=== PATIENT | male | born 2000 | race African-American/Black ===

== ENCOUNTER → 2021-10-07 | Outpatient (REF) | payer OTHER ==
[2021-10-08 00:45] LABS: GC DNA AMPLIFICATION NEGATIVE (NEGATIVE)
== END ==
LOC: M LAB REF 22:45
PROVIDERS: ATTEND Physician Assistant
DX: Z11.3 Encounter for screening for infections with a predominantly sexual mode of transmission (principal)

== ENCOUNTER → 2021-11-04 | Outpatient (REF) | payer OTHER, BC ==
[2021-11-05 12:28] LABS: GC DNA AMPLIFICATION NEGATIVE (NEGATIVE)
== END ==
LOC: M LAB REF 08:35
PROVIDERS: ATTEND Physician Assistant
DX: R30.0 Dysuria (principal)

== ENCOUNTER → 2022-07-15 | Outpatient (REF) | payer OTHER, BC ==
[2022-07-15 17:19] LABS: HEMATOCRIT 44.3 % (42.0-52.0); HEMOGLOBIN 14.9 g/dl (13.5-17.5); MEAN CORPUSCULAR HEMOGLOBIN 29.4 pg (27.0-33.0); MEAN CORPUSCULAR HGB CONC 33.6 g/dl (32.0-36.5); MEAN CORPUSCULAR VOLUME 87.5 fl (80.0-96.0); PLATELET COUNT, AUTOMATED 284 10^3/uL (150-450); RED BLOOD COUNT 5.06 10^6/uL (4.30-6.10); WHITE BLOOD COUNT 4.3 10^3/uL (4.0-10.0)
[2022-07-15 17:41] LABS: PERCENT SATURATION 43.3 % (19.7-50.0)
[2022-07-15 18:25] LABS: ALBUMIN 4.5 G/DL (3.2-5.2); BILIRUBIN,DIRECT 0.3 MG/DL (<0.4); FERRITIN 72.9 NG/ML (10.5-307.3); TOTAL PROTEIN 7.3 G/DL (5.7-8.2)
== END ==
LOC: M LAB REF 16:25
PROVIDERS: ATTEND Physician Assistant
DX: R94.5 Abnormal results of liver function studies (principal)

== ENCOUNTER → 2024-04-05 | Outpatient (CLI) | payer OTHER, BC | LOC: M WUC 14:22 | PROVIDERS: ATTEND Physician Assistant | DX: Z76.89 Persons encountering health services in other specified circumstances (principal) ==

== ENCOUNTER 2024-05-17 05:00 | Emergency (ER) | payer BC, OTHER ==
[~2024-05-17] VITALS: Ht 170.2 cm; Wt 62.8 kg
[2024-05-17] MEDS ORDERED: AMOX400S2 PO (06:36)
[2024-05-17 07:06] VITALS: BP 167/85; TEMP 100.5; O2SAT 99
== END 2024-05-17 07:09 | disposition home or self-care (01) ==
LOC: M ED 05:00
DX: J02.9 Acute pharyngitis, unspecified (principal); Z79.2 Long term (current) use of antibiotics

== ENCOUNTER → 2024-05-22 | Outpatient (CLI) | payer BC ==
[~2024-05-22] MED LIST: AMOX400S2 PO
== END ==
LOC: M WUC 11:43
PROVIDERS: ATTEND Physician Assistant
DX: B00.9 Herpesviral infection, unspecified (principal)

== ENCOUNTER 2024-07-13 12:02 | Emergency (ER) | payer BC ==
[~2024-07-13] VITALS: Ht 170.2 cm; Wt 54.8 kg
[2024-07-13 12:50] LABS: BASO % 0.3 % (0.0-1.0); EOS % 0.2 % (0.0-3.0); HEMATOCRIT 48.8 % (42.0-52.0); HEMOGLOBIN 17.1 g/dl (13.5-17.5); LYMPH # 1.4 10^3/uL (1.5-5.0); LYMPH % 23.8 % (24.0-44.0); MEAN CORPUSCULAR HEMOGLOBIN 29.9 pg (27.0-33.0); MEAN CORPUSCULAR VOLUME 85.5 fl (80.0-96.0); MONO # 0.6 10^3/uL (0.0-0.8); MONO % 9.7 % (2.0-8.0); NEUTROPHILS % 65.7 % (36.0-66.0); PLATELET COUNT, AUTOMATED 327 10^3/uL (150-450); RED BLOOD COUNT 5.71 10^6/uL (4.30-6.10); WHITE BLOOD COUNT 6.1 10^3/uL (4.0-10.0)
[2024-07-13] MEDS: NS (Normal Saline) 0.9% 1,000 ML IV ONE (13:12)
[2024-07-13 13:15] LABS: ALBUMIN 4.4 G/DL (3.2-5.2); ALKALINE PHOSPHATASE 61 U/L (40-129); ALT/SGPT 24 U/L (7.0-40); AST/SGOT 25 U/L (<34); BILIRUBIN,DIRECT 0.2 MG/DL (<0.4); BILIRUBIN,TOTAL 0.6 MG/DL (0.3-1.2); BLOOD UREA NITROGEN 20 MG/DL (9-23); CALCIUM LEVEL 9.7 MG/DL (8.5-10.1); CARBON DIOXIDE LEVEL 26 MMOL/L (20-31); CHLORIDE LEVEL 100 MMOL/L (98-107); CK-MB VALUE MASS < 1.0 NG/ML (<3.6); CREATININE FOR GFR 1.28 MG/DL (0.70-1.30); GLOMERULAR FILTRATION RATE > 60.0 (>60); GLUCOSE, FASTING 97 MG/DL (60-100); POTASSIUM SERUM 4.1 MMOL/L (3.5-5.1); SODIUM LEVEL 135 MMOL/L (136-145); TOTAL PROTEIN 8.5 G/DL (5.7-8.2)
[2024-07-13 13:17] LABS: FREE T4 0.99 NG/DL (0.89-1.76); THYROID STIMULATING HORMONE 0.626 uIU/ML (0.55-4.78)
[2024-07-13 13:21] LABS: CPK CREATINE PHOSPHOKINASE 102 U/L (46-171); MB/CK RELATIVE INDEX 0.98 (< OR =4)
[2024-07-13 14:10] LABS: CK-MB VALUE MASS < 1.0 NG/ML (<3.6)
[2024-07-13 14:11] LABS: CPK CREATINE PHOSPHOKINASE 98 U/L (46-171); MB/CK RELATIVE INDEX 1.02 (< OR =4)
[2024-07-13] MEDS ORDERED: ONDA-282 PO (14:24)
[2024-07-13 14:45] VITALS: TEMP 99; O2SAT 97
[2024-07-13 14:53] VITALS: BP 109/66
== END 2024-07-13 14:54 | disposition home or self-care (01) ==
LOC: M ED 12:02
DX: A08.32 Astrovirus enteritis (principal); F17.200 Nicotine dependence, unspecified, uncomplicated; F14.10 Cocaine abuse, uncomplicated; Z79.83 Long term (current) use of bisphosphonates

== ENCOUNTER 2024-10-31 06:08 | Emergency (ER) | payer BC ==
[~2024-10-31] VITALS: Ht 172.7 cm; Wt 58.0 kg
[~2024-10-31 06:08] MED LIST changes: +ONDA-282 PO
[2024-10-31] MEDS: ACETAMINOPHEN 325 MG TAB PO ONE (08:25)
[2024-10-31] MEDS ORDERED: AMOX500C PO (08:26)
[2024-10-31] MEDS ORDERED: AMOX400S2 PO (08:32)
[2024-10-31 08:35] VITALS: TEMP 98
[2024-10-31 08:38] VITALS: BP 142/89; O2SAT 97
== END 2024-10-31 08:45 | disposition home or self-care (01) ==
LOC: M ED 06:08
DX: H74.8X2 Other specified disorders of left middle ear and mastoid (principal); H72.92 Unspecified perforation of tympanic membrane, left ear; J45.909 Unspecified asthma, uncomplicated; Z79.2 Long term (current) use of antibiotics; Z79.83 Long term (current) use of bisphosphonates